=== PATIENT | female | born 1925 | race Caucasian/White ===

== ENCOUNTER 2017-04-11 20:52 | Inpatient (IN) | payer OTHER ==
[~2017-04-11] VITALS: Ht 157.5 cm; Wt 65.8 kg
--- NOTE | 2017-04-11 20:57 | ED AMS/SEIZURE/WEAK/DIZZY ---
History of Present Illness General Chief Complaint: Fall Stated Complaint: BIBA, FALL Source: patient, family, old records, EMS Exam Limitations: dementia Vital Signs & Intake/Output Vital Signs & Intake/Output Vital Signs Date Time Temp Pulse Resp B/P B/P Pulse O2 O2 Flow FiO2 Mean Ox Delivery Rate 04/12 0400 74 110/60 04/12 0251 98.1 75 20 112/57 97 Room Air 04/11 2340 99.2 86 18 103/56 96 Room Air 04/11 2100 97.7 88 20 105/66 96 Room Air ED Intake and Output 04/12 0000 04/11 1200 Intake Total 0 Output Total 100 Balance -100 Intake, Oral 0 Output, Urine 100 Patient 145 lb Weight Weight Estimated Measurement Method Allergies Coded Allergies: Penicillins (UNKNOWN 04/12/17) clarithromycin (UNKNOWN 04/12/17) Reconcile Medications Aspirin (Aspirin*) 81 MG TAB.CHEW 1 TAB PO DAILY HEART (Reported) Atorvastatin Calcium (Lipitor) 20 MG TABLET 1 TAB PO DAILY CHOLESTROL ( Reported) Levothyroxine Sodium (Synthroid) 100 MCG TABLET 1 TAB PO DAILY THYROID ( Reported) Triage Nurses Notes Reviewed? yes Onset: Gradual Duration: hour(s): Timing: recent history Injury Environment: home Severity: moderate Modifying Factors: Improves With: rest. Associated Symptoms: weakness HPI: 89 yo woman with dementia, from home, found on the ground at home, was picked up and placed in a chair by neighbors. They checked on her 2 hours later and she was found on the ground again. She does not recall the event. She notes no pain, no chest pain, no shortness of breath. She is otherwise well. Past History Travel History Traveled to [place] past 21 day No Medical History Any Pertinent Medical History? see below for history Neurological: dementia Pneumonia Vaccine: 04/02/06 Influenza Vaccine: 07/06/07 Surgical History Surgical History: non-contributory Psychosocial History Who do you live with Patient/Self Services at Home None What is your primary language Vietnamese Family History Hx Contributory? No Review of Systems Review of Systems Constitutional: Reports: no symptoms. EENTM: Reports: no symptoms. Respiratory: Reports: no symptoms. Cardiovascular: Reports: no symptoms. GI: Reports: no symptoms. Genitourinary: Reports: no symptoms. Musculoskeletal: Reports: no symptoms. Skin: Reports: no symptoms. Neurological/Psychological: Reports: no symptoms. Hematologic/Endocrine: Reports: no symptoms. Immunologic/Allergic: Reports: no symptoms. All Other Systems: Reviewed and Negative Physical Exam Physical Exam General Appearance: well developed/nourished, no apparent distress Head: atraumatic, normal appearance Eyes: Bilateral: normal appearance, PERRL, EOMI. Ears, Nose, Throat: normal pharynx, normal ENT inspection Neck: normal inspection, supple, full range of motion Respiratory: normal breath sounds, chest non-tender, no respiratory distress, quiet respiration, lungs clear Cardiovascular: regular rate/rhythm Gastrointestinal: normal bowel sounds, soft, non-tender, no organomegaly Back: normal inspection, normal range of motion, no vertebral tenderness Extremities: ecchymosis in the posterior aspect of both shoulders. Normal ROM. Neurologic/Psych: no motor/sensory deficits, awake, alert, oriented x 3 Skin: intact, normal color, warm/dry Core Measures ACS in differential dx? No CVA/TIA Diagnosis: No Severe Sepsis Present: No Septic Shock Present: No Progress Differential Diagnosis: alcohol intoxication, dehydration, electrolyte imbalance , intracranial Hem., intracranial mass/tumor, UTI/pyelo Plan of Care: Orders Procedure Date/time Status EKG 04/13 1000 Active Nothing by Mouth 04/12 B Active US-LIMITED ABDOMEN 04/12 1000 Active TROPONIN LEVEL 04/12 1000 Active Teach/Educate 04/12 0401 Active Pain Treatment and Response 04/12 0401 Active Nutritional Intake, Monitor 04/12 0401 Active Isolation 04/12 0401 Active Intake & Output 04/12 0401 Active Patient Care Conference 04/12 0401 Active Activity/Ambulation 04/12 0401 Active BLOOD CULTURE 04/12 0400 Active TROPONIN LEVEL 04/12 0400 Active LIPID PANEL 04/12 0400 Active LDH (LACT ACID DEHYDROGENASE) 04/12 0400 Active HEPATIC FUNCTION PANEL 04/12 0400 Active CBC WITHOUT DIFFERENTIAL 04/12 0400 Active BASIC ELECTROLYTES PLUS BUN&CR 04/12 0400 Active AMMONIA LEVEL 04/12 0400 Active EKG 04/12 0400 Active CULTURE,URINE 04/12 0248 Active Code Status 04/12 0151 Active Pathway - chart 04/12 0054 Active Patient Data 04/12 0007 Active Saline Lock 04/12 0002 Active Misc Message 04/12 0002 Active ED Holding Orders 04/12 0002 Active Vital Signs 04/12 0002 Active Code Status 04/12 0002 Complete Admit to inpatient 04/12 0001 Active SWALLOW EVALUATION 04/12 UNK Active PT Evaluate & Treat 04/12 UNK Active House Staff 04/12 UNK Active Lab Add-on Test 04/12 UNK Active VTE Mechanical Prophylaxis 04/12 UNK Active Vital Signs 04/12 UNK Active MISTAKE 04/12 UNK Active Precautions 04/12 UNK Active Intake & Output 04/12 UNK Active CIWA 04/12 UNK Active SOCIAL WORK CONSULT 04/12 UNK Active CASE MANAGEMENT CONSULT 04/12 UNK Active ECHOCARDIOGRAM 04/12 UNK Active URINE DRUGS OF ABUSE 04/11 2208 Complete THYROID STIMULATING HORMONE 04/11 2139 Complete PROTHROMBIN TIME 04/11 2139 Complete FREE T4 04/11 2139 Complete DIRECT BILIRUBIN 04/11 2139 Complete CREATINE PHOSPHOKINASE 04/11 2139 Complete VITAMIN B12 04/11 2139 Complete Intake & Output 04/11 2103 Complete ETHANOL 04/11 2101 Complete URINALYSIS 04/11 2057 Complete TROPONIN LEVEL 04/11 2057 Complete COMPREHENSIVE METABOLIC PANEL 04/11 2057 Complete CBC WITHOUT DIFFERENTIAL 04/11 2057 Complete EKG 04/11 2057 Active Current Medications Sig/[place] Start time Last Medication Dose Stop Time Status Admin Aspirin 81 MG DAILY 04/12 1000 AC (Aspirin) Levothyroxine Sodium 0.1 MG DAILY AC 04/12 07 AC (Synthroid) Heparin Sodium 5,000 UNIT Q8 04/12 06 AC (Porcine) Thiamine HCl 100 MG ONCE ONE 04/12 040 AC (Vitamin B-1) 04/12 0459 Sodium Chloride 100 ML (Normal Saline 0.9%) Sodium Chloride 1,000 ML Q13H 04/12 0245 AC (Normal Saline 0.9%) 04/13 0144 Ibuprofen 600 MG Q6 PRN 04/12 010 AC (Motrin) Oxycodone HCl 5 MG Q6 PRN 04/12 010 AC (Roxicodone) Oxycodone HCl 10 MG Q6P PRN 04/12 010 AC (Roxicodone) Laboratory Tests 04/12/17 0400: PT Cancelled, INR Cancelled 04/11/178: Urine Opiates Screen < 100.00, Methadone Screen < 40, Barbiturate Screen < 60, Ur Phencyclidine Scrn < 6.00, Amphetamines Screen < 100, U Benzodiazepines Scrn < 85, Urine Cocaine Screen < 50, Urine Cannabis Screen < 5.00, Urine Color YEL, Urine Clarity CLEAR, Urine pH 5.5, Ur Specific [place] >= 1.030, Urine Protein 100 H, Urine Ketones 15 H, Urine Nitrite NEG, Urine Bilirubin NEG@ICTO, Urine Urobilinogen 1.0, Ur Leukocyte Esterase TRACE H, Ur Microscopic SEDIMENT EXAMINED, Urine RBC 1-3, Urine WBC 5-10 H, Ur Epithelial Cells FEW, Urine Bacteria MOD H, Hyaline Casts 10-15 H, Urine Mucus MANY H, Urine Hemoglobin SMALL H, Urine Glucose NEG 04/11/17 2139: Anion Gap 11, Estimated GFR 52 L, BUN/Creatinine Ratio 27.0 H, Glucose 97, Calcium 9.3, Total Bilirubin 1.4 H, Direct Bilirubin 0.3, AST 273 H, ALT 102 H, Alkaline Phosphatase 93, Creatine Kinase 9414 H, Troponin I 0.11 *H, Total Protein 6.8, Albumin 4.2, Globulin 2.6, Albumin/Globulin Ratio 1.6, Vitamin B12 338, TSH 11.300 H, Free T4 0.71 L, PT 12.5, INR 1.19, CBC w Diff MAN DIFF ORDERED, RBC 4.58, MCV 92.7, MCH 31.0, RDW 14.7 H, MPV 8.1, Gran % 86.0 H, Lymphocytes % 8.6 L, Monocytes % 5.3, Eosinophils % 0, Basophils % 0.1, Absolute Granulocytes 12.4 H, Segmented Neutrophils 76 H, Band Neutrophils 6 H, Absolute Lymphocytes 1.2, Lymphocytes 13 L, Monocytes 5, Absolute Monocytes 0.8 H, Absolute Eosinophils 0, Absolute Basophils 0, Platelet Estimate ADEQUATE , Anisocytosis 1+, Macrocytic Cells 1+, PUBS MCHC 33.4, Serum Alcohol < 10.0 Microbiology 04/12 400 BLOOD: Blood Culture - ORD 04/12 400 BLOOD: Blood Culture - ORD 04/12 024 URINE ROUT: Urine Culture - ORD Diagnostic Imaging: Viewed by Me: Radiology Read, CT Scan. Discussed w/RAD: Radiology Read, CT Scan. Radiology Impression: bilateral shoulders... no fx, ABD/PELVIC CT... LARGE DIVERTICULUM NOTED... OTHERWISE NEGATIVE. FULL REPORT BELOW. CXR Impression: retrocardiac opacity... likely hiatal hernia Initial ED EKG: normal axis, normal intervals, normal p-waves, normal QRS complex, normal sinus rhythm Comments: PATIENT: MALLORY OCONNELL PRESENT AGE: 89 PATIENT ACCOUNT NO: [id number] : [birth year] LOCATION: [facility] ([facility]) ORDERING PHYSICIAN: DUTCH KINCAID MD SERVICE DATE: 04/11/17048 EXAM TYPE: CAT - CT ABD & PELVIS W/O IV CONTRAS EXAMINATION: CT ABDOMEN AND PELVIS WITHOUT CONTRAST CLINICAL INFORMATION: Elevated LFTs. COMPARISON: 04/02/2006 TECHNIQUE: Multidetector volumetric imaging was performed from the superior aspect of the liver through the pubic symphysis. Sagittal and coronal reformatted images were obtained on the technologist's workstation. DLP: 237 mGy-cm FINDINGS: LUNG BASES: Dependent atelectasis bilaterally. Coronary artery calcifications. LIVER, GALLBLADDER, AND BILIARY TREE: The liver is normal in size, shape, and attenuation. No focal hepatic lesion or biliary ductal dilatation is present. The gallbladder is unremarkable with no evidence of radiopaque gallstones, gallbladder wall thickening, or obvious pericholecystic inflammatory changes. PANCREAS: Unremarkable. SPLEEN: Unremarkable. ADRENAL GLANDS: Unremarkable. KIDNEYS AND URETERS: The kidneys are normal in size, shape, and attenuation. No hydronephrosis, hydroureter, or calculi seen. No perinephric stranding. Right upper pole renal cyst. BLADDER: Unremarkable. GASTROINTESTINAL TRACT: Moderate hiatal hernia. There is a large duodenal diverticulum with an air-fluid level. This measures 6.7 x 5.8 cm. The small bowel is otherwise unremarkable. No dilated loops of bowel or evidence of obstruction. Normal appendix. No colonic wall thickening or inflammatory change. There is colonic diverticulosis without evidence of diverticulitis. ABDOMINAL WALL: No significant hernia is appreciated. LYMPH NODES: Normal. VASCULAR: Moderate atherosclerotic calcifications. PELVIC VISCERA: No adnexal mass. Small calcification associated with uterine fundus may represent a fibroid. OSSEOUS STRUCTURES: No acute or suspicious osseous abnormality. Levoscoliosis of the lumbar spine. IMPRESSION: No acute findings of the abdomen or pelvis. Large duodenal diverticulum. Moderate hiatal hernia. DICTATED BY: ALKA RODRIGUEZ,ESHA DATE/TIME DICTATED:04/11/172332 QUALITY CONTROL ASSISTANT:DWIGHT DATE/TIME TRANSCRIBED:04/11/172332 CONFIDENTIAL, DO NOT COPY WITHOUT APPROPRIATE AUTHORIZATION. <Electronically signed in Other Vendor System> SIGNED BY: ESHA RUCKER MD 04/11 234 PATIENT: MALLORY OCONNELL PRESENT AGE: 89 PATIENT ACCOUNT NO: [id number] : [birth year] LOCATION: [facility] ([facility]) ORDERING PHYSICIAN: DUTCH KINCAID MD SERVICE DATE: 04/11/17 EXAM TYPE: RAD - XRY-PORTABLE CHEST XRAY EXAMINATION: XR PORTABLE CHEST CLINICAL INFORMATION: Fall. Trauma. COMPARISON: 05/10/2011 TECHNIQUE: Portable frontal view of the chest was obtained. FINDINGS: The lungs are well expanded. Bronchial wall thickening is seen with interstitial prominence. No pleural effusion or pneumothorax. The cardiomediastinal silhouette is normal in size. A retrocardiac opacity is present. IMPRESSION: Bronchial wall thickening with interstitial prominence may be in part chronic. Small airways disease not excluded. Retrocardiac opacity noted which is new from prior radiograph. This is nonspecific. This could represent a hiatal hernia. DICTATED BY: ESHA RUCKER MD DATE/TIME DICTATED:04/11/172242 QUALITY CONTROL ASSISTANT:DWIGHT DATE/TIME TRANSCRIBED:04/11/172242 CONFIDENTIAL, DO NOT COPY WITHOUT APPROPRIATE AUTHORIZATION. <Electronically signed in Other Vendor System> SIGNED BY: ESHA RUCKER MD 04/11 PATIENT: MALLORY OCONNELL PRESENT AGE: 89 PATIENT ACCOUNT NO: [id number] : [birth year] LOCATION: [facility] ([facility]) ORDERING PHYSICIAN: DUTCH KINCAID MD SERVICE DATE: 04/11/17 EXAM TYPE: RAD - XRY-SHOULDER COMPLETE-LEFT; XRY-SHOULDER COMPLETE-RIGHT EXAMINATION: XR SHOULDERS, BILATERAL CLINICAL INFORMATION: Pain status post fall. COMPARISON: None. TECHNIQUE: 3 views FINDINGS: Bone mineral density appears fairly well maintained without evidence of fracture or focal osseous lesions. There is superior subluxation of the humeral heads bilaterally with small marginal osteophytes consistent with chronically torn rotator cuff's IMPRESSION: No acute fracture or dislocation is seen. DICTATED BY: KEVIN ZARATE MD DATE/TIME DICTATED:07/07/17 / 2244 QUALITY CONTROL ASSISTANT:DWIGHT DATE/TIME TRANSCRIBED:04/11/172243 CONFIDENTIAL, DO NOT COPY WITHOUT APPROPRIATE AUTHORIZATION. <Electronically signed in Other Vendor System> SIGNED BY: KEVIN ZARATE MD 2248 Departure Departure Disposition: HOME OR SELF CARE Condition: Stable Clinical Impression Primary Impression: Troponin I above reference range Secondary Impressions: Dehydration, Weakness Referrals: HARI MARTINES MD Departure Forms: Customer Survey General Discharge Information Comments 04/11/17, 23:56... discussed with dr. mcghee. pt stable for tele. pt given aspirin. bblockers held due to relatively low blood pressure. Admission Note Spoke With: ANTHONY ENNIS MD Documentation of Exam: Documentation of any treatments & extenuating circumstances including Concerns Regarding Discharge (functional status, medication knowledge or non-compliance, living conditions, etc.) that warrant an admission rather than observation: pt with elevated troponin... merits admission for rule out, monitoring, cards consult. pt also unable to ambulate... requires PT/case management consult for possible placement/rehab. Critical Care Note Critical Care Note Critical Care Time: 30-74 min
--- NOTE | 2017-04-11 20:59 | NUR ---
PT BIBA FROM HOME. PER EMS, PT EXPERIENCED 2 UNWITNESSED FALLS TODAY AND WAS FOUND BY NEIGHBORS BOTH TIMES. PER EMS, PT LIVES WITH SON, BUT SON HAS NOT BEEN HOME TODAY. PER EMS, PT HAS HISTORY OF DEMENTIA BUT HAS BEEN EXPERIENCING INCREASED CONFUSION TODAY. PT ARRIVES TO ED ALERT BUT UNORIENTED TO PLACE OR TIME. PT HAS BRUISES TO LEFT AND RIGHT SHOULDERS.
--- NOTE | 2017-04-11 21:03 | NUR ---
PT TO CAT SCAN AT THIS TIME.
--- NOTE | 2017-04-11 21:31 | CT SCAN REPORT ---
EXAMINATION: CT HEAD WITHOUT CONTRAST CLINICAL INFORMATION: Status post fall. COMPARISON: 05/10/2011, MRI 04/30/2016. TECHNIQUE: Contiguous axial imaging was performed from the skull base to vertex without intravenous administration of contrast. DLP: 889 mGy-cm FINDINGS: There is no evidence of acute intracranial hemorrhage or territorial infarction. No abnormal mass effect or midline shift is seen. Jackman to white matter differentiation is well preserved. No extra-axial fluid collections are identified. The ventricular sulcal pattern is within normal limits for the patient's age. T here is periventricular decrease in attenuation most consistent with mild to moderate underlying small vessel ischemic changes largely unchanged compared with the previous examinations. The osseous structures and soft tissues are normal. The mastoid air cells and visualized portions of the paranasal sinuses are well aerated. There is mild mucosal thickening throughout the ethmoid sinuses. IMPRESSION: No acute intracranial pathology.
--- NOTE | 2017-04-11 21:40 | CT SCAN REPORT ---
EXAMINATION CT CERVICAL SPINE WITHOUT IV CONTRAST CLINICAL INFORMATION: Status post trauma. COMPARISON: None. TECHNIQUE: Multidetector helical CT acquisition of the cervical spine was obtained without IV contrast. Multiplanar reformats were acquired and utilized for image interpretation. DLP: 889 mGy-cm. FINDINGS: There is anatomic alignment of the vertebral bodies and posterior elements. There is no acute fracture and there is no acute subluxation. The craniocervical and atlantoaxial articulations are normal. There is loss of disc and joint space height throughout the cervical spine most notably C4/C5 through 6/7 levels with underlying uncovertebral greater than facet degenerative changes resulting in mild to moderate osseous foraminal narrowing most notably C5/C6 and 6/7 levels. There is grade 1 anterolisthesis of C7 on T1 likely degenerative. No underlying fractures are seen. There is no prevertebral soft tissue swelling. The thyroid gland appears atrophic. The visualized lung apices are clear. IMPRESSION: Degenerative changes without acute osseous abnormality within the cervical spine. Degenerative anterolisthesis of C7 on T1.
--- NOTE | 2017-04-11 21:42 | NUR ---
SSTX2, LAV, BLUE, SLAUGHTER AND PINK TOP TUBES SENT TO LAB.
--- NOTE | 2017-04-11 22:10 | NUR ---
URINE TRIO SENT TO LAB
--- NOTE | 2017-04-11 22:16 | NUR ---
100ML OF DARK JEFF URINE VOIDED.
--- NOTE | 2017-04-11 22:17 | NUR ---
PT TAKEN FOR XRAY AT THIS TIME.
[2017-04-11 22:23] LABS: ABSOLUTE BASOPHIL COUNT 0 /CUMM (0.0-0.2); ABSOLUTE EOSINOPHIL COUNT 0 /CUMM (0.0-0.7); ABSOLUTE GRANULOCYTE CT 12.4 /CUMM (1.4-6.5); ABSOLUTE LYMPH COUNT 1.2 /CUMM (1.2-3.4); ABSOLUTE MONOCYTE COUNT 0.8 /CUMM (0.10-0.60); BASOPHIL % 0.1 % (0.0-2.0); EOSINOPHIL % 0 % (0-5); HEMATOCRIT 42.5 % (37-47); MEAN CORPUSCULAR HGB CONC 33.4 G/DL (33.0-37.0); MEAN CORPUSCULAR VOLUME 92.7 FL (81.0-99.0); MEAN PLATELET VOLUME 8.1 FL (7.4-10.4); PLATELET COUNT 280 /CUMM (130-400); RBC DISTRIBUTION WIDTH 14.7 % (11.5-14.5); RED BLOOD CELL CT 4.58 /CUMM (4.20-5.40); WHITE BLOOD CELL COUNT 14.4 /CUMM (4.8-10.8)
--- NOTE | 2017-04-11 22:48 | RADIOLOGY REPORT ---
EXAMINATION: XR PORTABLE CHEST CLINICAL INFORMATION: Fall. Trauma. COMPARISON: 05/10/2011 TECHNIQUE: Portable frontal view of the chest was obtained. FINDINGS: The lungs are well expanded. Bronchial wall thickening is seen with interstitial prominence. No pleural effusion or pneumothorax. The cardiomediastinal silhouette is normal in size. A retrocardiac opacity is present. IMPRESSION: Bronchial wall thickening with interstitial prominence may be in part chronic. Small airways disease not excluded. Retrocardiac opacity noted which is new from prior radiograph. This is nonspecific. This could represent a hiatal hernia.
--- NOTE | 2017-04-11 22:49 | RADIOLOGY REPORT ---
EXAMINATION: XR SHOULDERS, BILATERAL CLINICAL INFORMATION: Pain status post fall. COMPARISON: None. TECHNIQUE: 3 views FINDINGS: Bone mineral density appears fairly well maintained without evidence of fracture or focal osseous lesions. There is superior subluxation of the humeral heads bilaterally with small marginal osteophytes consistent with chronically torn rotator cuff's IMPRESSION: No acute fracture or dislocation is seen.
--- NOTE | 2017-04-11 22:52 | NUR ---
CRITICAL TEST RESULTS [id number] MALLORY OCONNELL 89 F TESTS AND RESULTS: TROPONIN 0.11 Results received and read back by: ADRIAN BRANCH Results received date and time: 04/11/17 8022 The following provider was notified of the results, and read the results back: DR KINCAID Notified date and time: 04/11/17 at 4558
--- NOTE | 2017-04-11 23:02 | NUR ---
PT MEDICATED WITH ASPIRIN PER EMAR.
--- NOTE | 2017-04-11 23:40 | CT SCAN REPORT ---
EXAMINATION: CT ABDOMEN AND PELVIS WITHOUT CONTRAST CLINICAL INFORMATION: Elevated LFTs. COMPARISON: 04/02/2006 TECHNIQUE: Multidetector volumetric imaging was performed from the superior aspect of the liver through the pubic symphysis. Sagittal and coronal reformatted images were obtained on the technologist's workstation. DLP: 237 mGy-cm FINDINGS: LUNG BASES: Dependent atelectasis bilaterally. Coronary artery calcifications. LIVER, GALLBLADDER, AND BILIARY TREE: The liver is normal in size, shape, and attenuation. No focal hepatic lesion or biliary ductal dilatation is present. The gallbladder is unremarkable with no evidence of radiopaque gallstones, gallbladder wall thickening, or obvious pericholecystic inflammatory changes. PANCREAS: Unremarkable. SPLEEN: Unremarkable. ADRENAL GLANDS: Unremarkable. KIDNEYS AND URETERS: The kidneys are normal in size, shape, and attenuation. No hydronephrosis, hydroureter, or calculi seen. No perinephric stranding. Right upper pole renal cyst. BLADDER: Unremarkable. GASTROINTESTINAL TRACT: Moderate hiatal hernia. There is a large duodenal diverticulum with an air-fluid level. This measures 6.7 x 5.8 cm. The small bowel is otherwise unremarkable. No dilated loops of bowel or evidence of obstruction. Normal appendix. No colonic wall thickening or inflammatory change. There is colonic diverticulosis without evidence of diverticulitis. ABDOMINAL WALL: No significant hernia is appreciated. LYMPH NODES: Normal. VASCULAR: Moderate atherosclerotic calcifications. PELVIC VISCERA: No adnexal mass. Small calcification associated with uterine fundus may represent a fibroid. OSSEOUS STRUCTURES: No acute or suspicious osseous abnormality. Levoscoliosis of the lumbar spine. IMPRESSION: No acute findings of the abdomen or pelvis. Large duodenal diverticulum. Moderate hiatal hernia.
--- NOTE | 2017-04-11 23:46 | NUR ---
ASSUMED CARE OF THIS PATIENT REPORT RECEIVED FROM SOFI CAMPBELL PT DENIES ANY PAIN AT THIS TIME. PT TURNED AND REPOSITIONED. NOTED TO HAVE REDNESS ON BUTTOCKS, BLANCHABLE. SKIN CLEAN/DRY/INTACT. TURNED INTO SIDELYING POSITION AT THIS TIME. DR KINCAID AT BEDSIDE DISCUSSING P0C WITH SON.
[2017-04-11] MEDS ORDERED: SYNTHROID100 MCG PO (23:47)
--- NOTE | 2017-04-12 00:18 | NUR ---
IN HOSPITAL IV ACCESS ESTABLISHED, #22 LFA
--- NOTE | 2017-04-12 00:23 | NUR ---
PT NOTED TO HAVE TURNED SELF ONTO BACK IN SPITE OF PILLOW PROPPED TO HELP KEEP HER IN SIDELYING POSITION. WILL CONTINUE TO MONITOR.
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
--- NOTE | 2017-04-12 01:09 | NUR ---
HOUSE STAFF HERE TO EVALUATE PATIENT AT PRESENT
--- NOTE | 2017-04-12 01:33 | NUR ---
HOUSE STAFF COMPLETED EVAL AWAITING BED ASSIGMENT PT REPOSITIONED NOW TO R SIDE LYING POSITION
--- NOTE | 2017-04-12 01:36 | NUR ---
BED ASSIGNMENT 181-1
[2017-04-12] MEDS ORDERED: LIPITOR20 M2 PO (02:35)
[2017-04-12] MEDS ORDERED: ASPIRIN81 M4 PO (02:35)
--- NOTE | 2017-04-12 02:52 | NUR ---
REPORT TO SOFI VILLAFUERTE ON
--- NOTE | 2017-04-12 03:07 | PN- Att Addend ---
Attending Addendum Attending Brief Note CC: Fall PMH: Hypothyroidism (thyroidectomy), HLD, dementia, left inguinal hernia repair, History is limited, patient speaks Zambian, irrelevant, history provided by son. Patient was brought in ER through EMS after 2 unwitnessed falls at home. Patient was found on floor by her neighbors, they helped her to sit up, later on again she was found on floor so EMS was called. Patient lives alone, sometimes her son visits her. She was appearing more confused this morning when he visited her, he found her on the floor. According to him she is getting more confused and forgetful. Vitals: Afebrile, HR 88, RR 20, blood pressure 105/66, saturating well on room air. On exam: Limited : Patient speaks Zambian, not following instructions. Alert, very verbal, cooperative, no acute distress, neck supple, JVD normal, no lymphadenopathy, mucosa dry, spontaneously moves all extremities, strength could not be assessed, no dependent edema, multiple skin bruises CVS: S1-S2, RRR. RS: Clear to auscultate bilaterally. Abdomen: Soft, NT, ND, bowel sounds present. Labs: WBC 14.4, neutrophils 86%, bands 6, hemoglobin 14.2, hematocrit 42.5, platelet 280, BUN 27, creatinine 1.0 otherwise BMP unremarkable. Bilirubin 1.4, AST 273, ALT 102, troponin 0.11, albumin 4.2, UA positive for ketones, trace leukocyte esterase, WBC 5-10, hyaline casts 10-15 CT head and cervical spine: 1. No acute intracranial pathology. 2. Degenerative changes without acute osseous abnormality within the cervical spine. Degenerative anterolisthesis of C7 on T1. CT abdomen and pelvis without IV contrast No acute findings of the abdomen or pelvis. Large duodenal diverticulum. Moderate hiatal hernia. X-rays shoulder: No acute fracture or dislocation is seen. CXR: 1. Bronchial wall thickening with interstitial prominence may be in part chronic. Small airways disease not excluded. 2. Retrocardiac opacity noted which is new from prior radiograph. This is nonspecific. This could represent a hiatal hernia. A and P 89-year-old female with past medical history significant for hypothyroidism and dementia, unclear compliance with her medications was brought in ER for suspected unwitnessed falls. There is no history available regarding seizures, loss of consciousness. Patient is very verbal but does not provide any details even if asked in Zambian. No focalizing exam. She has mild leukocytosis, mild transaminitis with elevated bilirubin. Troponin is elevated. UA positive for trace leukocyte esterase, small hemoglobin, hyaline cast. deconditioning, ? Neglect, worsening dementia, ? Alcoholism, noncompliance can also be contributing to current condition. Need to rule out infection, vitamin deficiencies, arrhythmia, ACS. + Unwitnessed fall + Elevated troponin + Multiple bruises + History of hypothyroidism, dementia - Admit to telemetry - Continuous telemetry monitoring - Serial troponin and EKG - 2-D echocardiogram in a.m. - Cardiology consult for elevated troponin - Orthostatic vitals - Gentle hydration - Follow-up on vitamin B12, TSH, CK, ammonia, INR, blood culture, urine culture - OT PT evaluation - Right upper quadrant ultrasound to rule out gallstones, CBD stone - floor worker well service consult, case management consult for possible STIR placement - DVT prophylaxis with Lovenox or heparin - Avoid benzodiazepines and opiates - High-dose thiamine, need to reconfirm alcohol history, watch for withdrawals
--- NOTE | 2017-04-12 03:07 | Admission Certification ---
Admission Certification Certification Statement - As attending physician, I certify that at the time of - admission, based on clinical presentation, severity of - symptoms, need for further diagnostic testing and - therapeutic interventions, and risk of adverse outcomes - without in-hospital treatment, in my clinical assessment, - this patient requires an acute hospital stay for a minimum - of two nights or longer. I have also considered psychsocial - factors such as support system, advanced age, financial - issues, cognitive issues, and failed out-patient treatments, - past re-admission history, safety of patient, and lack of - compliance as applicable. Specific rationale supporting this admission is: Unwitnessed fall, deconditioning
[2017-04-12 03:08] LABS: PT 12.5 SEC (9.4-12.5)
[2017-04-12 04:00] VITALS: BP 110/60
[2017-04-12 04:56] LABS: ABSOLUTE BASOPHIL COUNT 0 /CUMM (0.0-0.2); ABSOLUTE EOSINOPHIL COUNT 0 /CUMM (0.0-0.7); ABSOLUTE GRANULOCYTE CT 9.1 /CUMM (1.4-6.5); ABSOLUTE LYMPH COUNT 1.9 /CUMM (1.2-3.4); ABSOLUTE MONOCYTE COUNT 0.4 /CUMM (0.10-0.60); BASOPHIL % 0.3 % (0.0-2.0); EOSINOPHIL % 0.1 % (0-5); GRANULOCYTE % 79.1 % (42.2-75.2); HEMATOCRIT 39.6 % (37-47); MEAN CORPUSCULAR HGB 31.2 PG (27.0-31.0); MEAN CORPUSCULAR HGB CONC 33.5 G/DL (33.0-37.0); PLATELET COUNT 247 /CUMM (130-400); RBC DISTRIBUTION WIDTH 14.7 % (11.5-14.5); RED BLOOD CELL CT 4.26 /CUMM (4.20-5.40); WHITE BLOOD CELL COUNT 11.5 /CUMM (4.8-10.8)
[2017-04-12 05:17] VITALS: BP 100/56
--- NOTE | 2017-04-12 11:11 | PN- Att Addend ---
Attending Addendum Attending Brief Note CC: Fall and altered mental status. PMH: Hypothyroidism (thyroidectomy), HLD, dementia, left inguinal hernia repair, "History is limited, patient speaks Guinean, irrelevant, history provided by son. Patient was brought in ER through EMS after 2 unwitnessed falls at home. Patient was found on floor by her neighbors, they helped her to sit up, later on again she was found on floor so EMS was called. Patient lives alone, sometimes her son visits her. She was appearing more confused this morning when he visited her, he found her on the floor. According to him she is getting more confused and forgetful." Vitals: Afebrile, stable. On exam: Limited : Patient speaks Guinean, not following instructions. Alert, very verbal, cooperative, no acute distress, neck supple, JVD normal, no lymphadenopathy, mucosa dry, spontaneously moves all extremities, strength could not be assessed, no dependent edema, multiple skin bruises CVS: S1-S2, RRR. RS: Clear to auscultate bilaterally. Abdomen: Soft, NT, ND, bowel sounds present. Labs: WBC 14.4, neutrophils 86%, bands 6, LDH 1400, no anemia. CT head and cervical spine: 1. No acute intracranial pathology. 2. Degenerative changes without acute osseous abnormality within the cervical spine. Degenerative anterolisthesis of C7 on T1. CT abdomen and pelvis without IV contrast No acute findings of the abdomen or pelvis. Large duodenal diverticulum. Moderate hiatal hernia. X-rays shoulder: No acute fracture or dislocation is seen. CXR: 1. Bronchial wall thickening with interstitial prominence may be in part chronic. Small airways disease not excluded. 2. Retrocardiac opacity noted which is new from prior radiograph. This is nonspecific. This could represent a hiatal hernia. A and P 1. Possible Aspiration pneumonia 2. Unwitnessed fall 3. Elevated troponin 4. Toxic metabolic encephaloapthy 5. History of hypothyroidism, dementia - Admit to telemetry - Continuous telemetry monitoring - Serial troponin and EKG tredning down - 2-D echocardiogram in a.m. - Cardiology consult - Orthostatic vitals f/u - Iv unasyn, Gentle hydration, Follow-up on blood culture, urine culture - OT PT evaluation - Right upper quadrant ultrasound F/U - exhaust worker consult, case management consult for possible STIR placement - DVT prophylaxis with Lovenox or heparin - Avoid benzodiazepines and opiates
--- NOTE | 2017-04-12 14:31 | ULTRASOUND REPORT ---
EXAMINATION: US ABDOMEN LIMITED CLINICAL INFORMATION: Transaminitis. Evaluate gallstones or fatty liver. COMPARISON: CT obtained yesterday. TECHNIQUE: Real-time imaging of the right upper quadrant abdominal viscera. Exam is limited due to patient body habitus and bowel gas. FINDINGS: PANCREAS: Not well visualized due to bowel gas. LIVER: Normal. The liver demonstrates normal size, contour and echogenicity. No focal lesion or intrahepatic biliary duct dilatation. The main portal vein is patent with appropriate hepatopedal flow. GALLBLADDER: Normal. The gallbladder is physiologically distended without evidence of stones, sludge, polyps, wall thickening or pericholecystic fluid. COMMON BILE DUCT: Normal in caliber measuring 0.3 cm in diameter. RIGHT KIDNEY: The right kidney is small and measures 7.8 cm in length. There is right renal cortical thinning. There is a 3.1 x 2.4 x 3.4 cm cyst in the upper pole. FREE FLUID: None IMPRESSION: Limited exam. Normal-appearing liver. Pancreas not well visualized. Right renal cyst.
[2017-04-12 14:57] VITALS: BP 110/60
[2017-04-12 22:43] VITALS: BP 124/68
[2017-04-13 06:56] VITALS: BP 102/62
--- NOTE | 2017-04-13 08:51 | Cons- Cardiology ---
General Information and HPI Consulting Request Date of Consult: 04/13/17 Requested By: ANTHONY ENNIS MD Reason for Consult: Elevated troponin Source of Information: patient, old records History of Present Illness: The patient is an 89-year-old female with a history of dementia who is usually followed by Dr. Doshi as her primary traveling freight agent as far as I can discern. The patient has had multiple unwitnessed falls prior to admission. Her son found her on the floor at home earlier yesterday. At that time she was found, she was awake but unable to get off the floor. The son reported no other abnormal findings. The patient, is a poor historian, and it is unclear whether she had any symptoms or whether there was any true syncope. On admission, the patient was noted to have a minimally elevated troponin of 0.11. Her subsequent follow-up troponin was decreased to 0.09. There is no evidence of any acute symptoms or cardiac event. Allergies/Medications Allergies: Coded Allergies: Penicillins (UNKNOWN 04/12/17) clarithromycin (UNKNOWN 04/12/17) Home Med List: Aspirin (Aspirin*) 81 MG TAB.CHEW 1 TAB PO DAILY HEART (Reported) Atorvastatin Calcium (Lipitor) 20 MG TABLET 1 TAB PO DAILY CHOLESTROL ( Reported) Levothyroxine Sodium (Synthroid) 100 MCG TABLET 1 TAB PO DAILY THYROID ( Reported) Current Medications: Current Medications Sig/[place] Start time Last Medication Dose Route Stop Time Status Admin Ampicillin Sodium/ 1,500 MG Q6 04/12 1200 CAN Sulbactam Sodium IV Sodium Chloride 100 ML Aspirin 81 MG DAILY 04/12 1000 AC 04/12 PO 1055 Clindamycin 600 MG Q8H 04/12 1200 AC 04/13 Dextrose/Water 50 ML IV 0411 Heparin Sodium 5,000 UNIT Q8 04/12 0600 AC 04/13 (Porcine) SC 0601 Ibuprofen 600 MG Q6 PRN 04/12 0100 AC PO Levothyroxine Sodium 0.1 MG DAILY AC 04/12 0700 AC 04/13 PO 0601 Oxycodone HCl 5 MG Q6 PRN 04/12 0100 AC PO Oxycodone HCl 10 MG Q6P PRN 04/12 0100 AC PO Polyethylene Glycol 17 GM DAILY 04/12 1638 AC 04/12 PO 1806 Senna/Docusate Sodium 1 TAB BID PRN 04/12 1645 AC PO Sodium Chloride 1,000 ML Q13H 04/12 0245 DC 04/12 IV 04/13 0144 1804 Past History Travel History Traveled to [place] past 21 day No Medical History Neurological: dementia EENT: NONE Cardiovascular: hyperlipidemia Respiratory: NONE Gastrointestinal: NONE Hepatic: NONE Renal: NONE Musculoskeletal: NONE Psychiatric: NONE Endocrine: hyperthyroidism, hypoparathyroidism Blood Disorders: NONE Cancer(s): NONE PHARMACY TECH/Reproductive: NONE Surgical History Surgical History: non-contributory Family History Relations & Conditions If Any: FATHER, ; Cause: Emphysema of lung. MOTHER, ; Cause: Old age. Psychosocial History Where Do You Live? Home Who Do You Live With? tenants Services at Home: None Primary Language: Portuguese Smoking Status: Never Smoked ETOH Use: occasional use Illicit Drug Use: denies illicit drug use Functional Ability ADLs Needs Assist: dressing, eating, toileting, bathing. Ambulation: cane Exam & Diagnostic Data Vital Signs and I&O Vital Signs Date Time Temp Pulse Resp B/P B/P Pulse O2 O2 Flow FiO2 Mean Ox Delivery Rate 04/13 0656 98.2 56 18 102/62 94 Room Air 04/12 2243 98.0 73 18 124/68 95 Room Air 04/12 1457 98.1 72 18 110/60 92 Room Air Intake & Output 04/13 1600 04/13 0800 04/13 0000 04/12 1600 04/12 0800 04/12 0000 Intake Total 990 920 0 Output Total 100 Balance 990 920 -100 Intake, IV 750 800 Intake, Oral 240 120 0 Number 1 0 Bowel Movements Output, Urine 100 Patient 145 lb Weight Weight Estimated Measurement Method Physical Exam: General Appearance Alert, No Acute Distress, pleasant but confused Skin No Rashes, No Breakdown, abrasion on the mid back R of the spine HEENT Atraumatic, PERRLA, EOMI, mucous membranes dry Neck Supple, surgical scar Cardiovascular Regular Rate, Normal S1, Normal S2, Gallops, Rubs, 2-3/6 systolic ejection murmur consistent with Lungs Clear to Auscultation, Normal Air Movement Abdomen Normal Bowel Sounds, Soft, No Tenderness, No Hepatospenomegaly, No Masses Neurological grossly normal Extremities No Clubbing, No Cyanosis, No Edema, Normal Pulses, nontender area of swelling on the R lateral malleolus approx. 3x3 cm, ecchymoses on B/L shoulders, abrasion of the L knee Vascular Normal Pulses, Pulses Symmetrical Labs/Jeffry Results: Laboratory Tests 04/13 04/12 04/12 0730 1000 0430 Chemistry Sodium (137 - 145 mmol/L) Pending 141 Potassium (3.5 - 5.1 mmol/L) Pending 3.9 Chloride (98 - 107 mmol/L) Pending 103 Carbon Dioxide (22 - 30 mmol/L) Pending 27 Anion Gap (5 - 16) Pending 10 BUN (7 - 17 mg/dL) Pending 28 H Creatinine (0.5 - 1.0 mg/dL) Pending 0.9 Estimated GFR (>60 ml/min) 59 L BUN/Creatinine Ratio (7 - 25 %) Pending 31.1 H Total Bilirubin (0.2 - 1.3 mg/dL) Pending 1.2 Direct Bilirubin (< 0.4 mg/dL) Pending 0.2 AST (14 - 36 U/L) Pending 212 H ALT (9 - 52 U/L) Pending 84 H Alkaline Phosphatase (<127 U/L) Pending 77 Ammonia (9 - 30 umol/L) < 9 L Lactate Dehydrogenase (313 - 618 U/L) 1404 H Troponin I (< 0.11 ng/ml) Cancelled 0.09 Total Protein (6.3 - 8.2 g/dL) Pending 6.2 L Albumin (3.5 - 5.0 g/dL) Pending 3.7 Triglycerides (<150 mg/dL) 153 H Cholesterol (<200 MG/DL) 266 H LDL Cholesterol, Calc (65 - 129 mg/dL) 157 H HDL Cholesterol (40 - 60 mg/dL) 79 H Cholesterol/HDL Ratio (0.00 - 4.23 %) 3 Hematology CBC w Diff NO MAN DIFF REQ WBC (4.8 - 10.8 /CUMM) 11.5 H RBC (4.20 - 5.40 /CUMM) 4.26 Hgb (12.0 - 16.0 G/DL) 13.3 Hct (37 - 47 %) 39.6 MCV (81.0 - 99.0 FL) 93.0 MCH (27.0 - 31.0 PG) 31.2 H RDW (11.5 - 14.5 %) 14.7 H Plt Count (130 - 400 /CUMM) 247 MPV (7.4 - 10.4 FL) 8.0 Gran % (42.2 - 75.2 %) 79.1 H Lymphocytes % (20.5 - 51.1 %) 16.7 L Monocytes % (1.7 - 9.3 %) 3.8 Eosinophils % (0 - 5 %) 0.1 Basophils % (0.0 - 2.0 %) 0.3 Absolute Granulocytes (1.4 - 6.5 /CUMM) 9.1 H Absolute Lymphocytes (1.2 - 3.4 /CUMM) 1.9 Absolute Monocytes (0.10 - 0.60 /CUMM) 0.4 Absolute Eosinophils (0.0 - 0.7 /CUMM) 0 Absolute Basophils (0.0 - 0.2 /CUMM) 0 PUBS MCHC (33.0 - 37.0 G/DL) 33.5 07/08 07/07 0400 2208 Coagulation PT Cancelled INR Cancelled Toxicology Urine Opiates Screen (>2000 NG/ML) < 100.00 Methadone Screen (>300 NG/ML) < 40 Barbiturate Screen (>200 NG/ML) < 60 Ur Phencyclidine Scrn (>25 NG/ML) < 6.00 Amphetamines Screen (>1000 NG/ML) < 100 U Benzodiazepines Scrn (>200 NG/ML) < 85 Urine Cocaine Screen (>300 NG/ML) < 50 Urine Cannabis Screen (>50 NG/ML) < 5.00 Urines Urine Color (YEL,AMB,STR) YEL Urine Clarity (CLEAR) CLEAR Urine pH (5.0 - 8.0) 5.5 Ur Specific [place] (1.001 - 1.035) >= 1.030 Urine Protein (NEG,<30 MG/DL) 100 H Urine Ketones (NEG) 15 H Urine Nitrite (NEG) NEG Urine Bilirubin (NEG) NEG@ICTO Urine Urobilinogen (0.1 - 1.0 EU/dl) 1.0 Ur Leukocyte Esterase (NEG) TRACE H Ur Microscopic SEDIMENT EXAMINED Urine RBC (0 - 5 /HPF) 1-3 Urine WBC (0 - 2 /HPF) 5-10 H Ur Epithelial Cells (NONE,FEW) FEW Urine Bacteria (NEG/NONE) MOD H Hyaline Casts (0/LPF) 10-15 H Urine Mucus (FEW,NONE) MANY H Urine Hemoglobin (NEG) SMALL H Urine Glucose (N MG/DL) NEG 04/119 Chemistry Sodium (137 - 145 mmol/L) 138 Potassium (3.5 - 5.1 mmol/L) 4.1 Chloride (98 - 107 mmol/L) 100 Carbon Dioxide (22 - 30 mmol/L) 27 Anion Gap (5 - 16) 11 BUN (7 - 17 mg/dL) 27 H Creatinine (0.5 - 1.0 mg/dL) 1.0 Estimated GFR (>60 ml/min) 52 L BUN/Creatinine Ratio (7 - 25 %) 27.0 H Glucose (65 - 99 mg/dL) 97 Calcium (8.4 - 10.2 mg/dL) 9.3 Total Bilirubin (0.2 - 1.3 mg/dL) 1.4 H Direct Bilirubin (< 0.4 mg/dL) 0.3 AST (14 - 36 U/L) 273 H ALT (9 - 52 U/L) 102 H Alkaline Phosphatase (<127 U/L) 93 Creatine Kinase (30 - 135 U/L) 9414 H Troponin I (< 0.11 ng/ml) 0.11 *H Total Protein (6.3 - 8.2 g/dL) 6.8 Albumin (3.5 - 5.0 g/dL) 4.2 Globulin (1.9 - 4.2 gm/dL) 2.6 Albumin/Globulin Ratio (1.1 - 2.2 %) 1.6 Vitamin B12 (239 - 931 pg/mL) 338 TSH (0.270 - 4.200 uIU/mL) 11.300 H Free T4 (0.85 - 1.93 ng/dL) 0.71 L Coagulation PT (9.4 - 12.5 SEC) 12.5 INR (0.90 - 1.19) 1.19 Hematology CBC w Diff MAN DIFF ORDERED WBC (4.8 - 10.8 /CUMM) 14.4 H RBC (4.20 - 5.40 /CUMM) 4.58 Hgb (12.0 - 16.0 G/DL) 14.2 Hct (37 - 47 %) 42.5 MCV (81.0 - 99.0 FL) 92.7 MCH (27.0 - 31.0 PG) 31.0 RDW (11.5 - 14.5 %) 14.7 H Plt Count (130 - 400 /CUMM) 280 MPV (7.4 - 10.4 FL) 8.1 Gran % (42.2 - 75.2 %) 86.0 H Lymphocytes % (20.5 - 51.1 %) 8.6 L Monocytes % (1.7 - 9.3 %) 5.3 Eosinophils % (0 - 5 %) 0 Basophils % (0.0 - 2.0 %) 0.1 Absolute Granulocytes (1.4 - 6.5 /CUMM) 12.4 H Segmented Neutrophils (42.2 - 75.2 %) 76 H Band Neutrophils (0.0 - 5.0 %) 6 H Absolute Lymphocytes (1.2 - 3.4 /CUMM) 1.2 Lymphocytes (20.5 - 51.1 %) 13 L Monocytes (1.7 - 9.3 %) 5 Absolute Monocytes (0.10 - 0.60 /CUMM) 0.8 H Absolute Eosinophils (0.0 - 0.7 /CUMM) 0 Absolute Basophils (0.0 - 0.2 /CUMM) 0 Platelet Estimate (ADEQUATE) ADEQUATE Anisocytosis 1+ Macrocytic Cells 1+ PUBS MCHC (33.0 - 37.0 G/DL) 33.4 Toxicology Serum Alcohol (<10 MG/DL) < 10.0 Diagnostic Data CXR Results FINDINGS: The lungs are well expanded. Bronchial wall thickening is seen with interstitial prominence. No pleural effusion or pneumothorax. The cardiomediastinal silhouette is normal in size. A retrocardiac opacity is present. IMPRESSION: Bronchial wall thickening with interstitial prominence may be in part chronic. Small airways disease not excluded. Retrocardiac opacity noted which is new from prior radiograph. This is nonspecific. This could represent a hiatal hernia. Assessment/Plan Assessment/Plan Assessment: 1. Multiple falls rule out possible syncope 2. Minimally elevated troponin 3. Altered mental status with underlying dementia 4. Transaminitis 5. Hypothyroidism 6. Hyperlipidemia 7. Probable aortic stenosis Recommendations: -Keep the patient on environmental monitoring specialist -Check orthostatic heart rate and blood pressure every shift 3 -Echocardiogram to reassess severity of aortic stenosis -Further plans after the echocardiogram. Consult Acknowledgment - Thank you for your consult request.
--- NOTE | 2017-04-13 09:19 | PN- Housestaff ---
[facility]01: Subjective Follow-up For: unwitnessed fall elevated troponin with normal ecg findings transaminitis with elevated bilirubin AMS Complaints: no complaints Tele-Events Since Last Visit: Sinus rhythm, 48-64 Subjective: History is limited since the patient speaks Slovak. She appears confused this morning, not oriented to time, place or person. White count improved this morning. Vital stable overnight. No fevers. Review of Systems Constitutional: Reports: malaise, weakness. EENTM: Reports: no symptoms. Cardiovascular: Reports: no symptoms. Respiratory: Reports: no symptoms. Gastrointestinal: Reports: no symptoms. Genitourinary: Reports: no symptoms. Musculoskeletal: Reports: no symptoms. Objective Last 24 Hrs of Vital Signs/I&O Vital Signs Date Time Temp Pulse Resp B/P B/P Pulse O2 O2 Flow FiO2 Mean Ox Delivery Rate 04/13 0656 98.2 56 18 102/62 94 Room Air 04/12 2243 98.0 73 18 124/68 95 Room Air 04/12 1457 98.1 72 18 110/60 92 Room Air Intake & Output 04/13 1600 04/13 0800 04/13 0000 Intake Total 990 Output Total Balance 990 Intake, IV 750 Intake, Oral 240 Number 1 Bowel Movements Physical Exam General Appearance: confused, not oriented to time, place or person Skin: No Rashes Skin Temp/Moisture Exam: Warm/Dry Sepsis Skin Exam (color): Normal for Ethnicity HEENT: Atraumatic, PERRLA, EOMI Neck: Supple, No JVD Lymphatic: Cervical nl Cardiovascular: Regular Rate, Normal S1, Normal S2, No Murmurs Lungs: diminished air entry Abdomen: Normal Bowel Sounds, Soft, No Tenderness Neurological: Normal Speech, Normal Tone, Sensation Intact Extremities: No Clubbing, No Cyanosis, No Edema Current Medications: Current Medications Sig/V[place] Start time Last Medication Dose Route Stop Time Status Admin Ampicillin Sodium/ 1,500 MG Q6 04/12 1200 CAN Sulbactam Sodium IV Sodium Chloride 100 ML Aspirin 81 MG DAILY 04/12 1000 AC / PO 1055 Clindamycin 600 MG Q8H 04/12 1200 AC 04/13 Dextrose/Water 50 ML IV 0411 Heparin Sodium 5,000 UNIT Q8 04/12 0600 AC 04/13 (Porcine) SC 0601 Ibuprofen 600 MG Q6 PRN 04/12 0100 AC PO Levothyroxine Sodium 0.1 MG DAILY AC 04/12 0700 AC 04/13 PO 0601 Oxycodone HCl 5 MG Q6 PRN 04/12 0100 AC PO Oxycodone HCl 10 MG Q6P PRN 04/12 0100 AC PO Polyethylene Glycol 17 GM DAILY 04/12 1638 AC 04/12 PO 1806 Senna/Docusate Sodium 1 TAB BID PRN 04/12 1645 AC PO Sodium Chloride 1,000 ML Q13H 04/12 0245 DC 04/12 IV 04/13 0144 1804 Last 24 Hrs of Lab/Jeffry Results Last 24 Hrs of Labs/Mics: Laboratory Tests 04/13/17 0730: Sodium Pending, Potassium Pending, Chloride Pending, Carbon Dioxide Pending, Anion Gap Pending, BUN Pending, Creatinine Pending, BUN/Creatinine Ratio Pending , Total Bilirubin Pending, Direct Bilirubin Pending, AST Pending, ALT Pending, Alkaline Phosphatase Pending, Total Protein Pending, Albumin Pending 04/12/17 1000: Troponin I Cancelled Microbiology 04/12 1106 LOWER RESP: Respiratory Culture - COLB 04/12 110 LOWER RESP: Gram Stain - COLB Assessment/Plan Assessment: 89-year-old female with a past medical history of hypothyroidism status post thyroidectomy, dementia, hyperlipidemia, glaucoma, osteoporosis presents from home status post unwitnessed fall. Labs pertinent for leukocytosis with a white blood cell count of 14,400, with 6 bands,. LFTs were elevated with an AST/ALT of 1273/102 with total bili 1.4. Alkaline phosphatase was 93. First set of troponin 0.11. U tox revealed a serum alcohol of less than 10. LDH 1404, creatinine kinase 9414 Chest x-ray was done that showed bronchial wall thickening with interstitial prominence, retrocardiac opacity which is new from prior radiograph which is nonspecific and could represent a hiatal hernia. No fracture or dislocation seen in the cervical CT, x-ray. Assessment * Possible Aspiration pneumonia * Unwitnessed fall * Rhabdomyolysis, elevated CPK and LDH * Altered mental status likely secondary to toxic metabolic encephalopathy * Elevated troponins * Transaminitis * Hypothyroidism * Dementia * Generalized deconditioning Plan * Troponins have trended down, no events on the advanced manufacturing consultant * Patient has been hydrated with IV fluids. We will continue maintenance at 75 mL an hour * Recheck orthostatic vitals * Continue clindamycin for aspiration pneumonia since patient is pen allergic * LFTs trending down, ultrasound abdomen negative for any acute findings * Elevated creatinine kinase and LDH likely secondary to muscle injury. We will continue some maintenance fluids at 75 mL an hour. We will keep trending CPK levels. * Echocardiogram pending. * OT/ PT evaluation * Cardiology consult appreciated * Social work and likely placement to an STR * Avoid benzodiazepines and opiates * DVT prophylaxis subcutaneous Lovenox * DNR/DNI Problem List: 1. Weakness 2. Dehydration 3. Confused Pain Ratin Pain Location: na Pain Goal: Remain pain free Pain Plan: tylenol prn Tomorrow's Labs & Rationales: cbc lft's creatinine kinase Consulting Request: Consulting Specialty: Cardiology WENDY AUGUST 04/13/17 1011: Attending MD Review Statement Attending Statement Attending MD Statement: examined this patient, discuss w/resident/PA/CORE CHECKER, agreed w/resident/PA/CORE CHECKER, discussed with family, reviewed EMR data (avail), discussed with nursing, discussed with case mgmt, reviewed images, amended to note Attending Assessment/Plan: Patient admitted here for unwitnessed falls, rhabdomylosis, possible aspiration pneumonia on fluids, abx, leukocytosis improving, cpk trend, cardiology consulted, echo pending, repeat orthostats, discharge possible in 24-48 hrs.
[2017-04-13 14:53] VITALS: BP 124/70
[2017-04-13 21:53] VITALS: BP 138/80
[2017-04-14 07:24] VITALS: BP 142/74
--- NOTE | 2017-04-14 09:06 | PN- Housestaff ---
See Addendum Subjective Follow-up For: unwitnessed fall elevated troponin with normal ecg findings transaminitis with elevated bilirubin AMS Complaints: no complaints Tele-Events Since Last Visit: sinus dez 59 nsr 60-70 Subjective: patient looks disoriented with altered mental status and unable to follow commands Review of Systems Constitutional: Denies: no symptoms. EENTM: Denies: no symptoms. Cardiovascular: Denies: no symptoms. Respiratory: Denies: no symptoms. Gastrointestinal: Denies: no symptoms. Genitourinary: Denies: no symptoms. Objective Last 24 Hrs of Vital Signs/I&O Vital Signs Date Time Temp Pulse Resp B/P B/P Pulse O2 O2 Flow FiO2 Mean Ox Delivery Rate 04/14 0724 98.5 68 18 142/74 94 Room Air 04/13 2153 98.2 69 18 138/80 94 04/13 1453 98.6 68 20 124/70 95 Room Air Intake & Output 04/14 1600 /10 0800 07 0000 Intake Total 480 Output Total Balance 480 Intake, Oral 480 Physical Exam General Appearance: Cooperative, altered mental status Skin: No Rashes, No Breakdown, No Significant Lesion Skin Temp/Moisture Exam: Warm/Dry HEENT: Atraumatic, PERRLA, EOMI, Mucous Membr. moist/pink Neck: Supple Cardiovascular: Regular Rate, Normal S1, Normal S2, No Murmurs Lungs: decreased air enterybilateral Abdomen: Normal Bowel Sounds, Soft, No Tenderness Extremities: No Clubbing, No Cyanosis, No Edema Assessment/Plan Assessment: 89-year-old female with a past medical history of hypothyroidism treated with thyroidectomy, dementia, hyperlipidemia, glaucoma, osteoporosis presents to the ED after unwitnessed fall,from home Labs on admission: pertinent for leukocytosis with a white blood cell count of 14,400, with 6 bands,. LFTs were elevated with an AST/ALT of 1273/102 with total bili 1.4. Alkaline phosphatase was 93. First set of troponin 0.11. urine toxicology revealed a serum alcohol of less than 10. LDH 1404, creatinine kinase 9414 Chest x-ray was done that showed bronchial wall thickening with interstitial prominence, retrocardiac opacity which is new from prior radiograph which is nonspecific and could represent a hiatal hernia. Assessmant: * Possible Aspiration pneumonia: today the patient report improvement of her SOB yet her chest exam remain to have wide spread wheezes and crepitation most likely due to interstitial lung disease, today her WBC is 6.3 * Unwitnessed fall: might be due to syncope either due to arrhythmia or orthostatic hypotension or probable aortic stenosis * Rhabdomyolysis, elevated CPK and LDH: today cpk is 599<---9414 * Altered mental status likely secondary to toxic metabolic encephalopathy VS dementia Vs Generalized deconditioning * Hypothyroidism( TSH 11 on 04/11) * Elevated troponins: back to normal on 04/12 at 0.09, EKG was negative, most likely due to clearance impairment , * Transaminitis: AST AND ALT ARE 73 AND 66 ( trending down)ultrasound abdomen negative for any acute findings Plan * Continue clindamycin for aspiration pneumonia since patient is pen allergic ( day 3) * DC IV fluids, pt can have oral intake * Recheck orthostatic vitals * LFTs trending down, continue checking * Echocardiogram pending. * OT/ PT evaluation * Social work and likely placement to an [facility] * Avoid benzodiazepines and opiates * DVT prophylaxis subcutaneous Lovenox * continue telemetery monitor * DNR/DNI Problem List: 1. Weakness 2. Dehydration 3. Confused Pain Ratin Pain Location: N/A Pain Goal: Remain pain free Pain Plan: ibuprofen oxycodone Tomorrow's Labs & Rationales: hepatic functions: transaminitis DVT/Prophylaxis: pharmacological Consulting Request: Consulting Specialty: Cardiology
[2017-04-14 09:31] LABS: ABSOLUTE BASOPHIL COUNT 0 /CUMM (0.0-0.2); ABSOLUTE EOSINOPHIL COUNT 0.1 /CUMM (0.0-0.7); ABSOLUTE GRANULOCYTE CT 4.2 /CUMM (1.4-6.5); ABSOLUTE LYMPH COUNT 1.6 /CUMM (1.2-3.4); ABSOLUTE MONOCYTE COUNT 0.4 /CUMM (0.10-0.60); BASOPHIL % 0.4 % (0.0-2.0); EOSINOPHIL % 1.1 % (0-5); HEMATOCRIT 36.4 % (37-47); MEAN CORPUSCULAR HGB 31.4 PG (27.0-31.0); MEAN CORPUSCULAR HGB CONC 33.5 G/DL (33.0-37.0); MEAN CORPUSCULAR VOLUME 93.5 FL (81.0-99.0); MEAN PLATELET VOLUME 8.7 FL (7.4-10.4); PLATELET COUNT 227 /CUMM (130-400); RBC DISTRIBUTION WIDTH 14.6 % (11.5-14.5); RED BLOOD CELL CT 3.89 /CUMM (4.20-5.40); WHITE BLOOD CELL COUNT 6.3 /CUMM (4.8-10.8)
--- NOTE | 2017-04-14 09:59 | PN- Cardiology ---
Subjective Subjective: * Patient complains of a dizzy sensation and has been a bit off balance during ambulation. She also complains of a severe hearing deficit. Otherwise she is free of chest discomfort or shortness of breath. * sinus rhythm * mildly increased hepatic transaminases and mild hypothyroidism noted. Objective Vital Signs and I&Os Vital Signs Date Time Temp Pulse Resp B/P B/P Pulse O2 O2 Flow FiO2 Mean Ox Delivery Rate 04/14 0724 98.5 68 18 142/74 94 Room Air 04/13 2153 98.2 69 18 138/80 94 04/13 1453 98.6 68 20 124/70 95 Room Air Intake & Output 04/14 1600 04/14 0800 04/14 0000 04/13 1600 04/13 0800 04/13 0000 Intake Total 480 600 990 Output Total 250 Balance 480 350 990 Intake, IV 750 Intake, Oral 480 600 240 Number 1 Bowel Movements Output, Urine 250 Physical Exam: General: WD/WN female in NAD; alert and oriented x 3 HEENT: NC/AT, PERRL, EOMI, severely decreased hearing Neck: no JVD Heart: Borderline tachycardia with 3/6 systolic murmur Lungs: clear bilaterally Extremities: no edema Assessment/Plan Assessment/Plan * This patient does not appear dry by physcial exam except for borderline tachycardia. Her renal function and sodium appear normal. It is certainly possible that she was mildly dehydrated upon initial presentation however. Agree with checking for orthostatic hypotension but consideration must be given to a labyrinthitis since the patient continues to have a dizzy sensation. It should be noted that this dizzy sensation is not associated with any arrhythmia but I would continue to monitor her on telemetry. * This patient has mildly increased hepatic transaminases that may be related to Lipitor. Hold this drug to see if her enzymes come down for diagnostic purposes. If the LFT abnormality is indeed from the statin we can still restart this drug as long as the enzymes are not greater than 2 times the upper limits of normal. A trial off the statin with reinitiation should allow us to discern if the issue is related to the statin at all or if we need to look into other reasons for hepatic insufficiency. * The patient had a borderline troponin elevation without chest pain or ECG changes in the setting of a creatinine that was slightly above her baseline and with a creatinine that was elevated. I believe the slight rise in enzymes was related to clearance issues with troponin rather than with an ACS. Nevertheless, we will continue to monitor for dysrhythmias. * Obtain an echocardiogram. Continue telemetry? Yes
[2017-04-14 15:08] VITALS: BP 130/70
--- NOTE | 2017-04-14 15:53 | ECHOCARDIOGRAM REPORT ---
MALLORY OCONNELL Age: 89 : 1925 Gender: F Exam Date: 04/13/2017 16:14 Exam Location: [facility] Ht (in): 62 Wt (lb): 145 BSA: 1.71 BP: / Ordering Physician: RIAN ORDONEZ MD Referring Physician: RIAN ORDONEZ MD Technologist: Gerald English FIDENCIO Room Number: Indications: MYOCARDIAL ISCHEMIA/MD Rhythm: Sinus Technical Quality: good FINDINGS Left Ventricle Normal left ventricular size, wall thickness and systolic function with no obvious regional wall motion abnormalities. Diastolic filling pattern is consistent with impaired LV relaxation. The ejection fraction is visually estimated at 70%. Right Ventricle The right ventricle is normal in size and function. Right Atrium The right atrium is normal in size. Left Atrium The left atrium is normal in size. The interatrial septum is intact. Mitral Valve The mitral valve is normal in structure and function. There is no mitral regurgitation. Aortic Valve Structurally normal aortic valve without significant sclerosis or stenosis. There is trace aortic regurgitation. Tricuspid Valve The tricuspid valve is normal in structure and function. There is no tricuspid regurgitation. Pulmonic Valve Structurally normal pulmonic valve. There is no pulmonic regurgitation. Pericardium Normal pericardium without effusion. No pleural effusion. Great Vessels Normal aortic root dimension. The aortic arch and great vessels are well seen and are normal. CONCLUSIONS 1. Normal EF of 70% with impaired LV relaxation. 2. Trace aortic insufficiency. Eric Doshi M.D. (Electronically Signed) Final Date: 14 April 2017 15:52 MEASUREMENTS (Male / Female) Normal Values 2D ECHO RV Internal Dim ED PLAX 2.5 cm 1.9 - 3.8 cm LV Ejection Fraction MOD BP 74.4 % >= 55 % LV Diastolic Length 4C 5.9 cm 6.9 - 10.3 cm LV Diastolic Area 4C 16.0 cm LV Diastolic Volume MOD 4C 35.0 cm LV Ejection Fraction MOD 4C 65.7 % LV Stroke Volume MOD 4C 23.0 cm LV Systolic Length 4C 4.6 cm LV Systolic Area 4C 8.1 cm LV Systolic Volume MOD 4C 12.0 cm LV Ejection Fraction MOD 2C 78.9 % LV Diastolic Volume 4C AL 36.6 cm 85 - 139 / 69 - 109 cm LV Systolic Volume 4C AL 12.0 cm LV Ejection Fraction 4C AL 67.2 % LV Stroke Volume 4C AL 24.6 cm LV Ejection Fraction 2C AL 80.9 % LA Volume 21.0 cm 18 - 58 / 22 - 52 cm DOPPLER AV Peak Velocity 189.0 cm/s AV Peak Gradient 14.3 mmHg AV Mean Velocity 131.0 cm/s AV Mean Gradient 8.0 mmHg AV Velocity Time Integral 39.9 cm LVOT Peak Velocity 83.5 cm/s LVOT Peak Gradient 2.8 mmHg LVOT Mean Velocity 53.2 cm/s LVOT Mean Gradient 1.0 mmHg LVOT Velocity Time Integral 14.9 cm Mitral E Point Velocity 75.0 cm/s Mitral A Point Velocity 97.2 cm/s Mitral E to A Ratio 0.8 MV Deceleration Time 282.0 ms TR Peak Velocity 247.0 cm/s TR Peak Gradient 24.4 mmHg LV E' Lateral Velocity 7.2 cm/s Mitral E to LV E' Lateral Ratio 10.4 LV E' Septal Velocity 4.3 cm/s Mitral E to LV E' Septal Ratio 17.5
[2017-04-14 22:00] VITALS: BP 140/80
[2017-04-15 02:00] VITALS: BP 130/80
[2017-04-15 06:37] VITALS: BP 140/70
--- NOTE | 2017-04-15 07:16 | PN- Housestaff ---
CHEMO RODRIGUEZ,KEE 04/15/17 0716: Subjective Follow-up For: unwitnessed fall elevated troponin with normal ecg findings transaminitis with elevated bilirubin AMS Complaints: no complaints Tele-Events Since Last Visit: NSR 58-80 Subjective: pt is lying in bed in no avute distress on room air , looks disoriented and unable to follow demands most likely due to dementia in addition to hearing impairment Review of Systems Constitutional: Denies: no symptoms. EENTM: Denies: no symptoms. Cardiovascular: Denies: no symptoms. Respiratory: Denies: no symptoms. Neurological/Psychological: Reports: weakness (dizziness). Objective Last 24 Hrs of Vital Signs/I&O Vital Signs Date Time Temp Pulse Resp B/P B/P Pulse O2 O2 Flow FiO2 Mean Ox Delivery Rate 04/15 0637 97.8 70 18 140/70 95 Room Air 04/15 0200 70 130/80 04/14 2200 98.7 69 20 140/80 95 Room Air 04/14 1508 98.1 68 18 130/70 96 Room Air 04/14 1454 Room Air Intake & Output 04/15 0800 04/15 0000 04/14 1600 Intake Total 250 190 Output Total 500 400 Balance -250 -210 Intake, IV 50 70 Intake, Oral 200 120 Output, Urine 500 400 Physical Exam General Appearance: Alert, Oriented X3, Cooperative, No Acute Distress Skin: No Rashes, No Breakdown, No Significant Lesion Skin Temp/Moisture Exam: Warm/Dry HEENT: Atraumatic, PERRLA, EOMI, Mucous Membr. moist/pink Neck: Supple, No JVD Cardiovascular: Regular Rate, Normal S1, Normal S2, No Murmurs Lungs: Clear to Auscultation, Normal Air Movement Abdomen: Normal Bowel Sounds, Soft, No Tenderness Extremities: No Cyanosis, No Edema Orders ECHO Findings: 1. Normal EF of 70% with impaired LV relaxation. 2. Trace aortic insufficiency. Assessment/Plan Assessment: 89-year-old female with a past medical history of hypothyroidism treated with thyroidectomy, dementia, hyperlipidemia, glaucoma, osteoporosis presents to the ED after unwitnessed fall,from home Labs on admission: pertinent for leukocytosis with a white blood cell count of 14,400, with 6 bands,. LFTs were elevated with an AST/ALT of 1273/102 with total bili 1.4. Alkaline phosphatase was 93. First set of troponin 0.11. urine toxicology revealed a serum alcohol of less than 10. LDH 1404, creatinine kinase 9414 Chest x-ray was done that showed bronchial wall thickening with interstitial prominence, retrocardiac opacity which is new from prior radiograph which is nonspecific and could represent a hiatal hernia. Assessmant: #Possible Aspiration pneumonia: today the patient report improvement of her SOB today her WBC is 6.3 Continue clindamycin for aspiration pneumonia since patient is pen allergic ( day 4) * DC IV fluids, pt can have oral intake #Unwitnessed fall: might be due to syncope either due to arrhythmia or orthostatic hypotension or probable aortic stenosis Echocardiogram on 04/13: showed Normal EF of 70% with impaired LV relaxation and Trace aortic insufficiency. Recheck orthostatic vitals: today it was 140/80 both lying and standing Avoid benzodiazepines and opiates #Rhabdomyolysis, elevated CPK and LDH: today cpk is 599<---9414 #Altered mental status likely secondary to toxic metabolic encephalopathy VS dementia Vs Generalized deconditioning #Hypothyroidism ( TSH 11 on 04/11) continue Levothyroxin #Elevated troponins: back to normal on 04/12 at 0.09, EKG was negative, most likely due to clearance impairment , #Transaminitis: AST AND ALT ARE 52 AND 63 ( trending down)ultrasound abdomen negative for any acute findings * DVT prophylaxis subcutaneous Lovenox * continue telemetery monitor Today the patient is stable for discharge , will be placed in STR * DNR/DNI Problem List: 1. Confused 2. Dehydration 3. Weakness Pain Ratin Pain Location: n/a Pain Goal: Remain pain free Pain Plan: ibuprofen oxycodone Tomorrow's Labs & Rationales: n/a DVT/Prophylaxis: pharmacological Consulting Request: Consulting Specialty: Cardiology VERONICA CAMILO MD 04/15/17 1547: Attending MD Review Statement Attending Statement Attending MD Statement: examined this patient, discuss w/resident/PA/MEDICATION ADMINISTRATION PROFESSIONAL, agreed w/resident/PA/MEDICATION ADMINISTRATION PROFESSIONAL, reviewed EMR data (avail), discussed with case mgmt, amended to note Attending Assessment/Plan: The patient was seen and discussed with house staff. Agree with the plan of care as outlined. OK to discharge to rehab today.
[2017-04-15 08:24] LABS: PT 18.6 SEC (9.4-12.5)
--- NOTE | 2017-04-15 11:12 | Discharge Summary ---
Visit Information Visit Dates Admission Date: 04/12/17 Discharge Date: 04/15/17 Hospital Course Course Attending Physician: VERONICA CAMILO MD Primary Care Physician: UNKNOWN Consulting Request: Consulting Specialty: Cardiology Hospital Course: 89-year-old female with a past medical history of hypothyroidism status post thyroidectomy, dementia, hyperlipidemia, glaucoma, osteoporosis presents from home status post 3 unwitnessed falls at home. Labs pertinent for leukocytosis with a white blood cell count of 14,400, H&H of 14.2/42.5 with 6 bands, and 76 cemented neutrophils platelet count 280,000. Serum chemistries revealed a sodium of 138, potassium of 4.1, normal anion gap of 11, BUN 27 with a creatinine of 1.0. Serum glucose of 97. LFTs were elevated with an AST/ALT of 1273/102 with total bili 1.4. Alkaline phosphatase was 93. First set of troponin 0.11. U tox revealed a serum alcohol of less than 10. UA showed proteinuria, ketones, trace amount of leukocyte esterase with 5-10 white blood cells, moderate amount of bacteria, hyaline casts for 10-15 with mucus and hemoglobin. EKG revealed Normal sinus rhythm with a heart rate of 78, normal axis, no ST-T changes with a normal QTC. Chest x-ray was done that showed bronchial wall thickening with interstitial prominence, retrocardiac opacity which is new from prior radiograph which is nonspecific and could represent a hiatal hernia. Head CT was done which showed no acute intracranial pathology. Cervical spine CT showed degenerative changes without acute osseous abnormality within the cervical spine. Degenerative anterolisthesis of C7 on T1. X-ray shoulder show no acute fracture or dislocation. CT of the abdomen and pelvis was done given transaminitis but showed no acute findings, large duodenal diverticulum with moderate hiatal hernia. Patient was treated in the hospital for: #Syncope: Patient was admitted to the telemetry floor for close monitoring. Differentials at the time of admission the cardiac arrhythmias, acute coronary syndrome, orthostatic hypotension. Her troponins trended down gradually and there were no arrhythmias recorded on the outgoing inspector. Patient was hydrated with IV fluids. Orthostatics were negative 2. Cardiology evaluated the patient and recommended trending to comment troponins and getting an echocardiogram. Echo showed a normal EF of 70% with impaired LV relaxation. There was no aortic stenosis on the echo. Patient remained asymptomatic on the floors and did not have anymore episode of falls. She passed the swallow eval and was started on a diet. Physical therapy worked with the patient and she was recommended short-term rehabilitation for regaining strength. Patient will be discharged on meclizine 3 times a day on a when necessary basis for dizziness. #Altered mental status: Her altered mental status was likely due to worsening dementia and delirium along with possible aspiration pneumonia. Blood and urine cultures were negative. Patient was adequately hydrated with IV fluids and treated with IV antibiotics for pneumonia. She has baseline dementia and would require placement in a short-term nursing facility and also a geriatric follow- up. #Aspiration pneumonia: Patient was started on IV clindamycin for aspiration pneumonia since she was been allergic. She had white count and bandemia at admission with slowly trended down. She remained afebrile on the floors with no further symptoms. She would be discharged home on by mouth clindamycin to complete a total 7 day course of clindamycin #Rhabdomyolysis and elevated LDH: Likely secondary to fall and muscle injury. Patient was hydrated aggressively with IV fluids with a decrease in CPK level and LDH. #Generalized deconditioning likely secondary to combination of infection, dementia, dehydration and delirium: Patient is being placed in short term rehabilitation for regaining her strength. Avoid benzodiazepines and opiates which could worsen the delirium. She needs a geriatric follow-up after discharge. PT/OT were working with the patient. #Elevated troponins with no EKG changes: Likely secondary to demand ischemia. Troponins trended down and patient was ruled out for ACS. #Transaminitis: LFTs were elevated at admission. Ultrasound was negativefor any acute findings. LFTs were trended and they came down during hospitalization. Continued on all other home medications DVT prophylaxis:Heparin 5000 international units 3 times a day subcutaneous Diet:Nothing by mouth pending swallow, she passed swallow eval and was started on regular diet with thin liquids. DNR/DNI Allergies: Coded Allergies: Penicillins (UNKNOWN 04/12/17) clarithromycin (UNKNOWN 04/12/17) Disposition Summary Disposition Principal Diagnosis: SYNCOPE Additional Diagnosis: ASOIRATION PNA Discharge Disposition: SNF Discharge Instructions General Discharge Information Code Status: Do Not Resucitate/Intubat Patient's Diet: regular diet with thin liquids. Patient's Activity: TOLERATED Follow-Up Instructions/Appts: Please follow-up with your tree scout post discharge and just was discharged. Please follow the certified mortician post discharge His follow-up with PCP post discharge Medications at Discharge Discharge Medications: Continue taking these medications: Levothyroxine Sodium (Synthroid) 100 MCG TABLET 1 Tablet ORAL DAILY Qty = 30 Comments: Last Taken: 04/15/17 Time: 7:23 AM Atorvastatin Calcium (Lipitor) 20 MG TABLET 1 Tablet ORAL DAILY Qty = 90 Comments: NOT GIVEN IN HOSPITAL Aspirin (Aspirin*) 81 MG TAB.CHEW 1 Tablet ORAL DAILY Qty = 90 Comments: Last Taken: 04/15/17 Time: 9:15 AM Start taking the following new medications: Clindamycin HCl (Clindamycin HCl) 300 MG CAPSULE 1 Capsule ORAL TWICE DAILY Qty = 9 No Refills Instructions: take 1 tab bid for 4 more days.(till 04/19/2017) Comments: IV DOSE GIVEN Last Taken: 04/15/17 Time: 12:35 PM Meclizine HCl (Meclizine HCl) 25 MG TABLET 1 Tablet ORAL THREE TIMES A DAY NEEDED Qty = 30 No Refills Comments: Last Taken: 04/15/17 Time: 12:35 PM Copies To: VERONICA CAMILO MD; ANALI RODRIGUEZ,BRADEN Bateman Attending Review Statement Documenting Attending: VERONICA CAMILO MD Other Findings: The patient was seen on the day of discharge and agree with the plan of care.
--- NOTE | 2017-04-15 11:15 | Patient Discharge Instructions ---
Discharge Instructions General Discharge Information You were seen/treated for: Multiple falls Altered mental status rhabdomyolysis Special Instructions: 1. please f/u with your pcp within 1 week ogf discharge. 2. please f/u with your cardiolohist within 1 week of discharge. 3. Please f/u with a nursing program manager within 2 week of discharge. Diet Recommended Diet: Regular no added salt Activity Full Activity/No Limits: Yes (as tolerated) Acute Coronary Syndrome Inclusion Criteria At DC or during hospital stay patient has or had the following: ACS DIAGNOSIS No Discharge Core Measures Meds if any: Prescribed or Continued at Discharge Meds if any: NOT Prescribed or Continued at Discharge Congestive Heart Failure Inclusion Criteria At DC or during hospital stay patient has or had the following: CHF DIAGNOSIS No Discharge Core Measures Meds if any: Prescribed or Continued at Discharge Meds if any: NOT Prescribed or Continued at Discharge Cerebrovascular accident Inclusion Criteria At DC or during hospital stay patient has or had the following: CVA/TIA Diagnosis No Discharge Core Measures Meds if any: Prescribed or Continued at Discharge Meds if any: NOT Prescribed or Continued at Discharge Venous thromboembolism Inclusion Criteria VTE Diagnosis No VTE Type NONE VTE Confirmed by (Test) NONE Discharge Core Measures - Per Current guidelines, there needs to be overlap - treatment for the first 5 days of Warfarin therapy. - If discharged on Warfarin prior to 5 days of - overlap therapy, the patient will need to be - assessed for post discharge needs including - *Post discharge parental anticoagulation - *Warfarin and/or parental anticoagulation education - *Follow up date to check INR post discharge At least 5 days overlap therapy as Inpatient No Meds if any: Prescribed or Continued at Discharge Note: Overlap Therapy is Warfarin and Anticoagulant Meds if any: NOT Prescribed or Continued at Discharge
[2017-04-15] MEDS ORDERED: CLINDAMYCIN HC300 M1 PO (11:17)
[2017-04-15] MEDS ORDERED: MECLIZINE HCL25 MG PO (11:22)
[2017-04-15 15:10] VITALS: BP 134/80
[2017-04-15 16:31] VITALS: BP 134/80
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
== END 2017-04-15 17:00 | DRG 178 ==
LOC: ERH 20:52 → 1NO 04-12 00:01 → ERHI 04-12 00:01 → ENRESERV 04-12 01:35 → 1NO 04-12 03:13 → ENPENDDIS 04-15 14:32 → 1NO 04-15 17:00
PROVIDERS: Internal Medicine Infectious Disease; Pediatrics; Student in an Organized Health Care Education/Training Program; ADMIT Internal Medicine
DX: J69.0 Pneumonitis due to inhalation of food and vomit (principal); M62.82 Rhabdomyolysis; I24.8 Other forms of acute ischemic heart disease; M81.0 Age-related osteoporosis without current pathological fracture; R74.0 Nonspecific elevation of levels of transaminase and lactic acid dehydrogenase [LDH]; W18.30XA Fall on same level, unspecified, initial encounter; Y93.9 Activity, unspecified; Y92.009 Unspecified place in unspecified non-institutional (private) residence as the place of occurrence of the external cause; T79.6XXA Traumatic ischemia of muscle, initial encounter; E86.0 Dehydration; Z91.14 Patient's other noncompliance with medication regimen; E89.2 Postprocedural hypoparathyroidism; R01.1 Cardiac murmur, unspecified; Z66 Do not resuscitate; E78.5 Hyperlipidemia, unspecified; H91.90 Unspecified hearing loss, unspecified ear
CPT/HCPCS: 1NP; 36415; 73030-LT; 73030-RT; 74176; 80307; 81001; 82436; 87040; 87070; 87086; 93005; 93010; 93306; 97110-GO; 97116-GO; 97162-GP; 97530-GO; G0480; J1644; J3490